=== PATIENT | female | born 1980 | race Caucasian/White ===

== ENCOUNTER 2016-07-08 18:52 | Inpatient (IN) | payer OTHER, SELFPAY ==
[~2016-07-08] VITALS: Ht 177.8 cm; Wt 98.0 kg
--- NOTE | ~2016-07-08 | FD ---
ADMIT: 07/08/2016 RM/LOC: 229 [facility] MR#: [id number] [address] JACKIE MOLINA [address] [id number] Final Diagnosis SEX: F AGE: 36 : 1980 ADMISSION DATE: 07/08/2016 DISCHARGE DATE: 07/10/2016 FINAL DIAGNOSIS: Term at 41 weeks. PROCEDURE: Vaginal delivery. Umair Mccall MD/ ana maria JOB #: [id number] CC: Umair Mccall MD, Attending Physician Umair Mccall MD, Family Physician
[2016-07-11] MEDS ORDERED: PRENATAL VIT1 TAB PO (18:46)
[2016-07-11] MEDS ORDERED: NIPPLECREAM TP (18:46)
[2016-07-11] MEDS ORDERED: MOTRIN-DPS800 MG PO (18:46)
[2016-07-11] MEDS ORDERED: COLACE-DPS100 MG PO (18:46)
[2016-07-11] MEDS ORDERED: TYLENOL #3 DPS1 TAB PO (18:46)
--- NOTE | 2016-07-14 09:39 | OR ---
ADMIT: 07/08/2016 RM/LOC: 229 [facility] MR#: [id number] [address] MEKHIANUSHKA JACKIE L [address] [place] [address] Operative/Delivery Room Report SEX: F AGE: 36 : 1980 SURGERY DATE: 07/09/2016 SURGEON: Umair Mccall MD PRINCIPAL DIAGNOSIS: Term intrauterine . POSTOPERATIVE DIAGNOSIS: Term intrauterine . PROCEDURE: Spontaneous vaginal delivery. INDICATION: The patient is a 36-year-old white female, 2 para 0-0-1- 0, who presented at 40-6/7th weeks' estimated gestational age for elective induction of labor, progressed through labor in a satisfactory fashion to complete with Pitocin augmentation. ANESTHESIA: Epidural and local. ESTIMATED BLOOD LOSS: 300 mL. COMPLICATIONS: None. FINDINGS: Viable male infant, 7 pounds 15 ounces with scores of 8 at 1 and 9 at 5 minutes, delivered in left occiput anterior presentation with a nuchal cord x1. DESCRIPTION OF PROCEDURE: When the patient was noted to be complete and pushing, she was prepped and draped in the usual fashion in dorsal lithotomy position. Infant's head was allowed to deliver over a midline episiotomy after instillation of approximately 4 mL 1% lidocaine in the perineum. After delivery of the head, the neck was examined for nuchal cord, and nuchal cord x1 was noted and was reduced without difficulty. The anterior followed by the ADMIT: 07/08/2016 RM/LOC: 229 [facility] MR#: [id number] [address] [address] JACKIE MOLINA L [address] [place] [address] Operative/Delivery Room Report SEX: F AGE: 36 : 1980 posterior shoulders were then delivered, followed by expulsion of the remainder of the . Mouth and nose were then cleared. Cord was clamped x2, cut, and the was placed on the maternal stomach in the care of nursing staff. Placenta was then delivered intact with normal appearance. The uterine cervix was then visualized and noted to be without lacerations or tears. Attention was then turned to the perineum where she was noted to have a small extension of the midline episiotomy, still second-degree in nature. This was repaired in standard fashion utilizing a single length of 2-0 Vicryl using a running locked stitch to close the vaginal mucosa, a running stitch to close the deep perineal body, and a subcuticular stitch to close the skin. The patient tolerated the procedure well and was taken to recovery room in stable condition. All sponge, instrument, and needle counts were correct. Umair Mccall MD/ saurabh JOB #: [id number] CC: Umair Mccall, Attending Physician Umair Mccall, Family Physician
--- NOTE | 2016-07-14 09:39 | HP ---
ADMIT: 07/08/2016 RM/LOC: 229 [facility] MR#: [id number] [address] JACKIE MOLINA [address] [place] [id number] Pre-OP History and Physical SEX: F AGE: 36 : 1980 DATE OF SERVICE: PRINCIPAL DIAGNOSIS: Intrauterine at 40 and 7th weeks' estimated gestational age. HISTORY OF PRESENT ILLNESS: The patient is a 36-year-old white female, 2, para 0-0-1-0, who presents at 40 and 6/7 weeks' estimated gestational age for elective induction of labor. PREVIOUS MEDICAL HISTORY: The patient denies any significant previous medical history. SOCIAL HISTORY: She is . Denies alcohol, tobacco, or drug use. FAMILY HISTORY: Significant for diabetes. PHYSICAL EXAMINATION: GENERAL: The patient is a well-developed, well- nourished white female. Alert and oriented, in no apparent distress with normal stream of thought and content of speech. HEART: Regular rate and rhythm without murmurs, rubs, or gallops. LUNGS: Clear to auscultation bilaterally. ABDOMEN: Soft with positive bowel sounds. Gravid. heart tones reassuring. Cervix on presentation was 2 cm dilated, 90% effaced, and approximately 0 station. ASSESSMENT: Term intrauterine . PLAN: We will plan on Pitocin and amniotomy induction of labor. We will anticipate a spontaneous vaginal delivery. She is GBS positive. We will begin antibiotics for group B strep prophylaxis. Umair Mccall MD/ saurabh JOB #: [id number] CC: Umair Mccall, Attending Physician Umair Mccall, Family Physician
== END 2016-07-10 23:15 | disposition home or self-care (01) | DRG 775 ==
LOC: 2LDRP 18:52 → BC 18:52 → 2LDRP 18:53
PROVIDERS: ADMIT Obstetrics & Gynecology
PROC: 0W8NXZZ Division of Female Perineum, External Approach (ICD-10-PCS; principal; 2016-07-09)
PROC: 10E0XZZ Delivery of Products of Conception, External Approach (ICD-10-PCS; principal; 2016-07-09)
PROC: 0KQM0ZZ Repair Perineum Muscle, Open Approach (ICD-10-PCS; principal; 2016-07-09)
DX: O48.0 Post-term pregnancy (principal); O99.824 Streptococcus B carrier state complicating childbirth; O69.81X0 Labor and delivery complicated by cord around neck, without compression, not applicable or unspecified; O70.1 Second degree perineal laceration during delivery; Z37.0 Single live birth; Z3A.40 40 weeks gestation of pregnancy